=== PATIENT | female | born 1990 | race Caucasian/White ===

== ENCOUNTER → 2018-05-10 | Outpatient (CLI) | payer MEDICAID ==
[2018-05-10 20:13] LABS: HIV 1 AB Non-Reactive (Non-Reactive); HIV AB P24 Non-Reactive (Non-Reactive); HIV P24 AG Non-Reactive (Non-Reactive)
== END | disposition home or self-care (01) ==
LOC: LABWHC1 11:12
PROVIDERS: ATTEND Obstetrics & Gynecology
DX: Z11.3 Encounter for screening for infections with a predominantly sexual mode of transmission (principal)
CPT/HCPCS: 36415; 86780; 87390

== ENCOUNTER 2018-10-09 12:43 | Inpatient (IN) | payer MEDICAID ==
[2018-10-09] MEDS ORDERED: SODIUM CHLORIDE 0.9% 1,000 ML IV STA (13:07)
[2018-10-09] MEDS ORDERED: ACETAMINOPHEN TAB 500 MG TAB PO STA (13:36)
[2018-10-09 14:01] LABS: Appearance,Urine Cloudy (Clear); Basophils % (A) 0 %; Bilirubin,Urine Negative (Negative); Blood,Urine Negative (Negative); Color,Urine Red; Eosinophils # (A) 0.1 k/uL (0-0.7); Eosinophils % (A) 1 %; Glucose,Urine (UA) Negative (Negative); HCT 41.8 % (34.0-46.0); HGB 13.7 gm/dL (11.4-16.0); Ketones,Urine 1+ (Negative); Leukocyte Esterase,Urine Large (Negative); Lymphocytes # (A) 0.5 k/uL (1.0-4.8); Lymphocytes % (A) 5 %; MCHC 32.8 g/dL (31.0-37.0); MCV 88.3 fL (80.0-100.0); Mean Platelet Volume 6.2; Monocytes # (A) 0.4 k/uL (0-1.0); Monocytes % (A) 3 %; Mucus,Urine Rare /hpf; Neutrophils # (A) 10.1 k/uL (1.3-7.7); Neutrophils % (A) 91 %; Nitrite,Urine Negative (Negative); PH, Urine 7.5 (5.0-8.0); Platelet Count 209 k/uL (150-450); Protein,Urine 1+ (Negative); RBC 4.74 m/uL (3.80-5.40); RBC,Urine 4 /hpf (0-5); RDW 13.4 % (11.5-15.5); Specific Gravity,Urine 1.023 (1.001-1.035); Squamous Epithelial Cell,Urine 18 /hpf (0-4); WBC 11.2 k/uL (3.8-10.6); WBC,Urine 54 /hpf (0-5)
[2018-10-09 14:04] LABS: ALT 42 U/L (9-52); AST 28 U/L (14-36); Alkaline Phosphatase 66 U/L (38-126); Anion Gap 8 mmol/L; Blood Urea Nitrogen 13 mg/dL (7-17); Calcium 9.4 mg/dL (8.4-10.2); Carbon Dioxide 24 mmol/L (22-30); Chloride 104 mmol/L (98-107); Glucose 102 mg/dL (74-99); Potassium 4.2 mmol/L (3.5-5.1); Sodium 136 mmol/L (137-145); Total Bilirubin 0.7 mg/dL (0.2-1.3); Total Protein 6.8 g/dL (6.3-8.2)
[2018-10-09] MEDS ORDERED: metroNIDAZOLE-NS PMX 500 MG in SALINE 1 100ML.BAG IVPB STA (14:11)
--- NOTE | 2018-10-09 14:14 | ED ---
General Adult HPI - General Chief complaint: Fever Stated complaint: post surgical poss septic per Dr Barrera Time Seen by Provider: 10/09/18 13:07 Source: patient, RN notes reviewed, old records reviewed Mode of arrival: ambulatory Limitations: no limitations - History of Present Illness Initial comments: 28-year-old female presents for evaluation of fever and vaginal discharge. Patient is 13 days postop cervical cryotherapy. She was seen at outside hospital yesterday with symptoms of fever and increased vaginal discharge. Discharged home with outpatient follow-up. She did call her [employer] who recommended she presented to the emergency department for fever workup. Prior to procedure patient had 2 cultures which were negative for infection. Symptoms of increased vaginal discharge have been primarily over the past 3-4 days. She's had temperature of 101. Denies URI symptoms. Denies cough. Denies upper abdominal pain. Only complains of lower abdominal pain. - Related Data Home Medications Medication Instructions Recorded Confirmed ALPRAZolam [Xanax] 0.25 mg PO BID PRN 10/09/18 10/09/18 Norethindrone-E.estradiol-Iron 1 tab PO DAILY 10/09/18 10/09/18 [Junel Fe 1 mg-20 Mcg Tablet] Allergies Allergy/AdvReac Type Severity Reaction Status Date / Time Sulfa (Sulfonamide Allergy Rash/Hives Verified 10/09/18 13:34 Antibiotics) tree nut Allergy Unknown Verified 10/09/18 13:34 walnut Allergy Anaphylaxis Verified 10/09/18 13:34 Review of Systems ROS Statement: Those systems with pertinent positive or pertinent negative responses have been documented in the HPI. ROS Other: All systems not noted in ROS Statement are negative. Past Medical History Past Medical History: Asthma History of Any Multi-Drug Resistant Organisms: MRSA Date of last positivie culture/infection: 2008 MDRO Source:: bella and nose same time Past Surgical History: No Surgical Hx Reported Past Psychological History: Anxiety Smoking Status: Current every day smoker Past Alcohol Use History: Rare Past Drug Use History: None Reported General Exam Limitations: no limitations General appearance: alert, in no apparent distress Head exam: Present: atraumatic, normocephalic Eye exam: Present: normal appearance, PERRL ENT exam: Present: normal exam Neck exam: Present: normal inspection. Absent: tenderness, meningismus Respiratory exam: Present: normal lung sounds bilaterally. Absent: respiratory distress Cardiovascular Exam: Present: normal rhythm, tachycardia GI/Abdominal exam: Present: soft, tenderness (Suprapubic tenderness). Absent: distended External exam: Present: normal external exam Speculum exam: Present: vaginal discharge, cervical discharge By manual exam: Present: cervical motion tenderness Extremities exam: Present: normal inspection, full ROM. Absent: tenderness Neurological exam: Present: alert, oriented X3 Psychiatric exam: Present: normal affect, normal mood Skin exam: Present: warm, dry, intact. Absent: cyanosis, diaphoretic Course Vital Signs 10/09/18 12:44 Temperature 100.1 F H Pulse Rate 110 H Respiratory 18 Rate Blood Pressure 144/81 O2 Sat by Pulse 96 Oximetry Medical Decision Making - Medical Decision Making 28-year-old female with fever, pelvic pain, vaginal discharge. On exam patient has copious vaginal discharge, cervical motion tenderness. No upper abdominal pain or tenderness. Workup in the emergency department reveals leukocytosis, 11.2, stable he will, normal CMP, she does have contaminated urine with 54 white cells. Ultrasound is obtained, negative for TOA, no acute findings. Chest x-ray negative for focal pneumonia. Influenza negative. Cultures pending including blood culture, urine culture, vaginal culture, GC chlamydia. Patient started on antibiotics to cover pelvic inflammatory disease. Case is discussed with Dr. Barrera, will accept admission for failed outpatient treatment. - Lab Data Result diagrams: 10/09/18 13:35 10/09/18 13:35 Lab Results 10/09/18 10/09/18 10/09/18 Range/Units 13:35 13:35 13:35 WBC 11.2 H (3.8-10.6) k/uL RBC 4.74 (3.80-5.40) m/uL Hgb 13.7 (11.4-16.0) gm/dL Hct 41.8 (34.0-46.0) % MCV 88.3 (80.0-100.0) fL MCH 29.0 (25.0-35.0) pg MCHC 32.8 (31.0-37.0) g/dL RDW 13.4 (11.5-15.5) % Plt Count 209 (150-450) k/uL Neutrophils % 91 % Lymphocytes % 5 % Monocytes % 3 % Eosinophils % 1 % Basophils % 0 % Neutrophils # 10.1 H (1.3-7.7) k/uL Lymphocytes # 0.5 L (1.0-4.8) k/uL Monocytes # 0.4 (0-1.0) k/uL Eosinophils # 0.1 (0-0.7) k/uL Basophils # 0.0 (0-0.2) k/uL Sodium 136 L (137-145) mmol/L Potassium 4.2 (3.5-5.1) mmol/L Chloride 104 (98-107) mmol/L Carbon Dioxide 24 (22-30) mmol/L Anion Gap 8 mmol/L BUN 13 (7-17) mg/dL Creatinine 0.68 (0.52-1.04) mg/dL Est GFR (CKD-EPI)AfAm >90 (>60 ml/min/1.73 sqM) Est GFR (CKD-EPI)NonAf >90 (>60 ml/min/1.73 sqM) Glucose 102 H (74-99) mg/dL Plasma Lactic Acid Florentino 1.1 (0.7-2.0) mmol/L Calcium 9.4 (8.4-10.2) mg/dL Total Bilirubin 0.7 (0.2-1.3) mg/dL AST 28 (14-36) U/L ALT 42 (9-52) U/L Alkaline Phosphatase 66 (38-126) U/L Total Protein 6.8 (6.3-8.2) g/dL Albumin 4.0 (3.5-5.0) g/dL Urine Color Urine Appearance (Clear) Urine pH (5.0-8.0) Ur Specific [place] (1.001-1.035) Urine Protein (Negative) Urine Glucose (UA) (Negative) Urine Ketones (Negative) Urine Blood (Negative) Urine Nitrite (Negative) Urine Bilirubin (Negative) Urine Urobilinogen (<2.0) mg/dL Ur Leukocyte Esterase (Negative) Urine RBC (0-5) /hpf Urine WBC (0-5) /hpf Ur Squamous Epith Cells (0-4) /hpf Urine Mucus (None) /hpf Urine HCG, Qual (Not Detectd) Influenza Type A RNA (Not Detectd) Influenza Type B (PCR) (Not Detectd) Trichomonas Ag (Rapid) (Negative) 10/09/18 10/09/18 10/09/18 Range/Units 13:35 13:35 14:10 WBC (3.8-10.6) k/uL RBC (3.80-5.40) m/uL Hgb (11.4-16.0) gm/dL Hct (34.0-46.0) % MCV (80.0-100.0) fL MCH (25.0-35.0) pg MCHC (31.0-37.0) g/dL RDW (11.5-15.5) % Plt Count (150-450) k/uL Neutrophils % % Lymphocytes % % Monocytes % % Eosinophils % % Basophils % % Neutrophils # (1.3-7.7) k/uL Lymphocytes # (1.0-4.8) k/uL Monocytes # (0-1.0) k/uL Eosinophils # (0-0.7) k/uL Basophils # (0-0.2) k/uL Sodium (137-145) mmol/L Potassium (3.5-5.1) mmol/L Chloride (98-107) mmol/L Carbon Dioxide (22-30) mmol/L Anion Gap mmol/L BUN (7-17) mg/dL Creatinine (0.52-1.04) mg/dL Est GFR (CKD-EPI)AfAm (>60 ml/min/1.73 sqM) Est GFR (CKD-EPI)NonAf (>60 ml/min/1.73 sqM) Glucose (74-99) mg/dL Plasma Lactic Acid Florentino (0.7-2.0) mmol/L Calcium (8.4-10.2) mg/dL Total Bilirubin (0.2-1.3) mg/dL AST (14-36) U/L ALT (9-52) U/L Alkaline Phosphatase (38-126) U/L Total Protein (6.3-8.2) g/dL Albumin (3.5-5.0) g/dL Urine Color Red Urine Appearance Cloudy H (Clear) Urine pH 7.5 (5.0-8.0) Ur Specific [place] 1.023 (1.001-1.035) Urine Protein 1+ H (Negative) Urine Glucose (UA) Negative (Negative) Urine Ketones 1+ H (Negative) Urine Blood Negative (Negative) Urine Nitrite Negative (Negative) Urine Bilirubin Negative (Negative) Urine Urobilinogen 12.0 (<2.0) mg/dL Ur Leukocyte Esterase Large H (Negative) Urine RBC 4 (0-5) /hpf Urine WBC 54 H (0-5) /hpf Ur Squamous Epith Cells 18 H (0-4) /hpf Urine Mucus Rare H (None) /hpf Urine HCG, Qual Not Detected (Not Detectd) Influenza Type A RNA Not Detected (Not Detectd) Influenza Type B (PCR) Not Detected (Not Detectd) Trichomonas Ag (Rapid) Negative (Negative) Disposition Clinical Impression: Pelvic inflammatory disease Disposition: ADMITTED IP TO THIS HOSP Condition: Stable Is patient prescribed a controlled substance at d/c from ED?: No Referrals: Clifton Tilley DO [Primary Care Provider] - 1-2 days Decision to Admit Reason: Admit from EC Decision Date: 10/09/18 Decision Time: 17:05
[2018-10-09] MEDS ORDERED: KETOROLAC 30 MG/ML 1 ML VIAL IVP STA (14:35)
--- NOTE | 2018-10-09 15:03 | US ---
EXAMINATION TYPE: US pelvic complete DATE OF EXAM: 10/09/2018 COMPARISON: NONE CLINICAL HISTORY: pain. cervical procedure 3 days prior and now pelvic pain, fever and elevated WBC TECHNIQUE: TA. Patient did not want TV approach if not necessary due to pain Date of LMP: 09/07/2018 EXAM MEASUREMENTS: Uterus: 6.3 x 3.6 x 3.2 cm Endometrial Stripe: 0.3 cm Right Ovary: 2.0 x 1.9 x 1.8 cm Left Ovary: 2.7 x 2.6 x 2.3 cm 1. Uterus: Anteverted wnl 2. Endometrium: wnl 3. Right Ovary: 1.7cm cystic cluster seen 4. Left Ovary: wnl Spectral, color and waveform doppler imaging shows good arterial and venous flow within the ovaries ; 5. Bilateral Adnexa: no free fluid 6. Posterior cul-de-sac: no free fluid There is heterogeneous anteverted uterus. No free fluid is seen in pelvic cul-de-sac. Both ovaries are present. Within right ovary there is a group of small adjacent cysts or stenosis wit hin septa. IMPRESSION: No suspicious fluid collection or abscess seen.
[2018-10-09] MEDS ORDERED: SODIUM CHLORIDE 0.9% 1,000 ML IV ONE (15:47)
--- NOTE | 2018-10-09 15:48 | XR ---
EXAMINATION TYPE: XR chest 2V DATE OF EXAM: 10/09/2018 COMPARISON: NONE TECHNIQUE: PA and lateral views submitted. HISTORY: Fever FINDINGS: The lungs are clear and there is no pneumothorax, pleural effusion, or focal pneumonia. IMPRESSION: 1. No acute process.
[2018-10-09] MEDS ORDERED: DOXYCYCLINE 100 MG CAP PO STA (16:47)
[2018-10-09] MEDS ORDERED: MORPHINE SULFATE 4 MG/ML SYRINGE IVP STA (16:52)
[2018-10-09] MEDS ORDERED: NALOXONE 0.4 MG/ML 1 ML VIAL IV PRN (17:01)
[2018-10-09] MEDS ORDERED: ACETAMINOPHEN TAB 325 MG TAB PO PRN (17:01)
--- NOTE | 2018-10-09 18:03 | P.HPOB ---
History of Present Illness H&P Date: 10/09/18 Chief Complaint: Fever, abdominal pain This is a 28 year female 2 para 1 who presents to the emergency room complaining of lower abdominal pain and fevers. She was seen at [facility] yesterday complaining of body aches, fever, and lower abdominal pain she also complained of some vaginal discharge that she has noticed since she had a cryocautery in the office on 09/26/2018. She was given some antibiotics and told she had an infection from the cryo-and sent home. She called the office this morning and was still complaining of fevers and did not feel good. She was advised to return to the emergency room at [facility] to be further evaluated for her elevated white count, fevers, and abdominal pain. In the emergency room she had a thorough workup including pelvic ultrasound and pelvic exam. Pelvic ultrasound was negative but she did have cervical motion tenderness and suprapubic tenderness over her uterine fundus on exam per ER doctor. She also had copious vaginal discharge. She did state she had a new partner recently and did have cultures in my office on September 26 that were all negative for STDs. She denies any intercourse since her cryocautery on 2018. She is being admitted for IV antibiotics for failed outpatient treatment for PID. She is on control pills and just took her last active pill today. Obstetrical history: . History of 1 vaginal delivery and 1 miscarriage. Gynecologic history: She does have a history of herpes and has 1-2 outbreaks per year. She has not had an outbreaks in 8-9 months. She also has a history of gonorrhea and chlamydia and Trichomonas that were treated in 2014. Social history: She is single. 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 Review of Systems Constitutional: Reports chills, Reports fatigue, Reports fever Gastrointestinal: Reports abdominal pain Genitourinary: Reports pelvic pain, Reports vaginal discharge, Denies Musculoskeletal: Reports myalgias Psychiatric: Reports anxiety Past Medical History Past Medical History: Asthma History of Any Multi-Drug Resistant Organisms: MRSA Date of last positivie culture/infection: 2008 MDRO Source:: bella and nose same time Past Surgical History: No Surgical Hx Reported Past Psychological History: Anxiety Smoking Status: Current every day smoker Past Alcohol Use History: Rare Past Drug Use History: None Reported - Past Family History Father Family Medical History: Hypertension Medications and Allergies Home Medications Medication Instructions Recorded Confirmed Type Albuterol Inhaler [Ventolin Hfa 1 - 2 puff INHALATION RT-Q6H PRN 10/09/18 History Inhaler] Montelukast Sodium [Singulair] 10 mg PO HS 10/09/18 10/09/18 History Norethindrone-E.estradiol-Iron 1 tab PO DAILY 10/09/18 10/09/18 History [Junel Fe 1 mg-20 Mcg Tablet] RX: ALPRAZolam [Xanax] 0.25 mg PO BID PRN 10/09/18 10/09/18 History Allergies Allergy/AdvReac Type Severity Reaction Status Date / Time Sulfa (Sulfonamide Allergy Rash/Hives Verified 10/09/18 13:34 Antibiotics) tree nut Allergy Unknown Verified 10/09/18 13:34 walnut Allergy Anaphylaxis Verified 10/09/18 13:34 Exam Osteopathic Statement: *. No significant issues noted on an osteopathic structural exam other than those noted in the History and Physical/Consult. Vital Signs Temp Pulse Resp BP Pulse Ox 10/09/18 16:49 98.3 F 91 18 117/76 99 10/09/18 12:44 100.1 F H 110 H 18 144/81 96 Intake and Output 10/09/18 10/09/18 10/09/18 06:59 14:59 22:59 Other: Weight 70.307 kg Gen.: Well developed well-nourished female in mild distress Abdomen: Soft, tender suprapubically with no guarding or rebound. Pelvic exam: Deferred at this time due to recent exam in the ER. Extremities: Negative Homans - OBG Physical Exam Abdomen: Tenderness suprapubically, no guarding or rebound Abdomen: bowel sounds normal, no diffuse tenderness Uterus: Pelvic exam is deferred at this time since she already had a pelvic exam by ER physician. Results Result Diagrams: 10/09/18 13:35 10/09/18 13:35 Abnormal Lab Results - Last 24 Hours (Table) 10/09/18 10/09/18 10/09/18 Range/Units 13:35 13:35 13:35 WBC 11.2 H (3.8-10.6) k/uL Neutrophils # 10.1 H (1.3-7.7) k/uL Lymphocytes # 0.5 L (1.0-4.8) k/uL Sodium 136 L (137-145) mmol/L Glucose 102 H (74-99) mg/dL Urine Appearance Cloudy H (Clear) Urine Protein 1+ H (Negative) Urine Ketones 1+ H (Negative) Ur Leukocyte Esterase Large H (Negative) Urine WBC 54 H (0-5) /hpf Ur Squamous Epith Cells 18 H (0-4) /hpf Urine Mucus Rare H (None) /hpf Assessment and Plan (1) Pelvic inflammatory disease Current Visit: Yes Status: Acute Code(s): N73.9 - FEMALE PELVIC INFLAMMATORY DISEASE, UNSPECIFIED SNOMED Code(s): 502471647 Plan: Agree with admission and IV antibiotics. Once she is 24 hours afebrile on antibiotics, we will switch to oral medications and discharge home. We'll give pain medication as needed.
[2018-10-09] MEDS: SODIUM CHLORIDE 0.9% 1,000 ML IV SCH (20:00)
[2018-10-09 20:24] VITALS: BMI 26.4
[2018-10-09] MEDS: MORPHINE SULFATE 4 MG/ML SYRINGE IV PRN (21:00)
[2018-10-09] MEDS ORDERED: DOXYCYCLINE 100 MG in SODIUM CHLORIDE 0.9% 100 ML IVPB SCH (21:00)
[2018-10-10] MEDS: metroNIDAZOLE-NS PMX 500 MG in SALINE 1 100ML.BAG IVPB SCH ×3 (00:19→15:38)
[2018-10-10] MEDS: MORPHINE SULFATE 4 MG/ML SYRINGE IV PRN ×2 (01:00→06:16)
[2018-10-10] MEDS ORDERED: ALPRAZolam 0.25 MG TAB PO PRN (01:14)
[2018-10-10] MEDS: ALBUTEROL NEBULIZED 2.5 MG/3 ML INHALATION PRN ×2 (01:43→07:25)
[2018-10-10] MEDS ORDERED: HYDROcodone/APAP 7.5-325MG 1 EACH TAB PO PRN (05:30)
--- NOTE | 2018-10-10 05:30 | P.PN ---
Subjective Progress Note Date: 10/10/18 Principal diagnosis: PID Patient states her abdominal pain is better today however she is still using morphine about every 4 hours for pain. She states her vaginal discharge has significantly decreased from yesterday. Her appetite is normal. Objective - Vital Signs Vital signs: Vital Signs Temp 99.2 F 10/10/18 00:17 Pulse 76 10/10/18 01:56 Resp 16 10/10/18 01:56 BP 123/85 10/10/18 00:58 Pulse Ox 100 10/10/18 00:58 Intake & Output 10/09/18 10/09/18 10/10/18 06:59 18:59 06:59 Output Total 1 Balance -1 Weight 70.307 kg Output: Stool 1 Other: # Voids 1 # Bowel Movements 1 - Constitutional General appearance: Present: no acute distress - Gastrointestinal General gastrointestinal: Present: soft Localized gastrointestinal: tender: suprabubic - Labs CBC & Chem 7: 10/09/18 13:35 10/09/18 13:35 Labs: Abnormal Lab Results - Last 24 Hours (Table) 10/09/18 10/09/18 10/09/18 Range/Units 13:35 13:35 13:35 WBC 11.2 H (3.8-10.6) k/uL Neutrophils # 10.1 H (1.3-7.7) k/uL Lymphocytes # 0.5 L (1.0-4.8) k/uL Sodium 136 L (137-145) mmol/L Glucose 102 H (74-99) mg/dL Urine Appearance Cloudy H (Clear) Urine Protein 1+ H (Negative) Urine Ketones 1+ H (Negative) Ur Leukocyte Esterase Large H (Negative) Urine WBC 54 H (0-5) /hpf Ur Squamous Epith Cells 18 H (0-4) /hpf Urine Mucus Rare H (None) /hpf Microbiology - Last 24 Hours (Table) 10/09/18 14:10 Genital Culture - Preliminary Cervix 10/09/18 13:35 Urine Culture - Preliminary Urine,Voided Assessment and Plan (1) Pelvic inflammatory disease Current Visit: Yes Status: Acute Code(s): N73.9 - FEMALE PELVIC INFLAMMATORY DISEASE, UNSPECIFIED SNOMED Code(s): 997643946 Plan: Will continue with IV antibiotics through today. Will check CBC this morning. I have encouraged her to try to take oral pain medications if possible and only use the IV pain medication for severe pain. She is agreeable to this plan.
[2018-10-10] MEDS: DOXYCYCLINE 100 MG in SODIUM CHLORIDE 0.9% 100 ML IVPB SCH ×2 (06:17→18:10)
[2018-10-10] MEDS: IBUPROFEN 600 MG TAB PO PRN ×3 (06:17→18:58)
[2018-10-10 06:20] LABS: Basophils % (A) 0 %; Eosinophils # (A) 0.1 k/uL (0-0.7); Eosinophils % (A) 1 %; HCT 34.5 % (34.0-46.0); HGB 11.3 gm/dL (11.4-16.0); Lymphocytes # (A) 1.1 k/uL (1.0-4.8); Lymphocytes % (A) 12 %; MCH 29.5 pg (25.0-35.0); MCHC 32.9 g/dL (31.0-37.0); MCV 89.9 fL (80.0-100.0); Monocytes # (A) 0.5 k/uL (0-1.0); Monocytes % (A) 5 %; Neutrophils # (A) 7.2 k/uL (1.3-7.7); Neutrophils % (A) 80 %; Platelet Count 162 k/uL (150-450); RBC 3.84 m/uL (3.80-5.40); RDW 13.4 % (11.5-15.5); WBC 9.1 k/uL (3.8-10.6)
[2018-10-10] MEDS ORDERED: DOXYCYCLINE 100 MG in SODIUM CHLORIDE 0.9% 100 ML IVPB SCH (09:00)
[2018-10-10] MEDS: HYDROcodone/APAP 5-325MG 1 EACH TAB PO PRN ×3 (09:18→21:39)
[2018-10-10 14:30] LABS: N. gonorrhoeae,PCR Negative (Neg,Equiv); Neisseria Source Vagina
[2018-10-10 14:35] LABS: C. trachomatis,PCR Negative (Neg,Equiv); Chlamydia trachomatis Source Vagina
[2018-10-10] MEDS ORDERED: MONTELUKAST 10 MG TAB PO SCH (21:00)
[2018-10-11] MEDS: metroNIDAZOLE-NS PMX 500 MG in SALINE 1 100ML.BAG IVPB SCH ×2 (00:54→08:09)
[2018-10-11] MEDS: IBUPROFEN 600 MG TAB PO PRN ×2 (00:55→06:58)
[2018-10-11 03:33] VITALS: TEMP 97.9
[2018-10-11] MEDS: HYDROcodone/APAP 5-325MG 1 EACH TAB PO PRN (03:58)
[2018-10-11] MEDS: DOXYCYCLINE 100 MG in SODIUM CHLORIDE 0.9% 100 ML IVPB SCH (06:12)
[2018-10-11] MEDS: SODIUM CHLORIDE 0.9% 1,000 ML IV SCH ×2 (06:38→06:39)
[2018-10-11 08:18] VITALS: BP 107/72; PULSE 64; RESP 16
--- NOTE | 2018-10-11 08:45 | P.DS ---
Providers Date of admission: 10/09/18 17:02 Expected date of discharge: 10/11/18 Attending physician: Ana Luisa Barrera Primary care physician: Clifton Tilley, DO - Discharge Diagnosis(es) (1) Pelvic inflammatory disease Current Visit: Yes Status: Acute Hospital Course: This is a 28-year-old female who presented with fevers and abdominal pain and was diagnosed with PID in the emergency room. All of her cultures so far are negative. She has been afebrile for over 24 hours now. Her pain and discharge have significantly decreased. She is still using [place] and ibuprofen alternating for pain, but overall her pain level has decreased. Vital signs are stable. Abdomen is soft with very minimal suprapubic tenderness and no guarding or rebound. Extremities show negative Homans. Impression is PID- failed outpatient treatment. Plan is to discharge home today on oral doxycycline and they will prescribe ibuprofen and a 3 day supply of [place]. She has starting the start taking opioid form. She denies taking any other narcotics at home. I have advised her to follow up in the office in 1-2 weeks for a postoperative check. I've advised her to call if she has any further questions or concerns prior to her appointment time. Patient Condition at Discharge: Stable Plan - Discharge Summary Discharge Rx Participant: Yes New Discharge Prescriptions: New Doxycycline [Vibramycin] 100 mg PO BID 10 Days #20 cap HYDROcodone/APAP 5-325MG [[place] 5-325] 1 each PO Q4HR PRN #18 tab PRN Reason: Moderate pain Ibuprofen [Motrin] 600 mg PO Q6HR PRN #60 tab PRN Reason: Moderate Pain Continue Norethindrone-E.estradiol-Iron [Junel Fe 1 mg-20 Mcg Tablet] 1 tab PO DAILY # 28 tablet No Action ALPRAZolam [Xanax] 0.25 mg PO BID PRN PRN Reason: Anxiety Montelukast Sodium [Singulair] 10 mg PO HS Albuterol Inhaler [Ventolin Hfa Inhaler] 1 - 2 puff INHALATION RT-Q6H PRN PRN Reason: Wheezing Discharge Medication List ALPRAZolam [Xanax] 0.25 mg PO BID PRN 10/09/18 [History] Albuterol Inhaler [Ventolin Hfa Inhaler] 1 - 2 puff INHALATION RT-Q6H PRN [History] Montelukast Sodium [Singulair] 10 mg PO HS 10/09/18 [History] Doxycycline [Vibramycin] 100 mg PO BID 10 Days #20 cap 10/11/18 [Rx] HYDROcodone/APAP 5-325MG [[place] 5-325] 1 each PO Q4HR PRN #18 tab 10/11/18 [Rx] Ibuprofen [Motrin] 600 mg PO Q6HR PRN #60 tab 10/11/18 [Rx] Norethindrone-E.estradiol-Iron [Junel Fe 1 mg-20 Mcg Tablet] 1 tab PO DAILY #28 tablet 10/11/18 [Rx] Follow up Appointment(s)/Referral(s): Clifton Tilley DO [Primary Care Provider] - 1-2 days Ana Luisa Barrera DO [Doctor of Osteopathic Medicine] - 10 Days Activity/Diet/Wound Care/Special Instructions: Pt would like dc rx at discharge. Activity as tolerated. Diet as tolerated. If any intercourse, use condoms while on antibiotics due to decreased effectiveness of control pills on antibiotics. Discharge Disposition: HOME SELF-CARE
== END 2018-10-11 10:00 | disposition home or self-care (01) | DRG 759 ==
LOC: EC 12:43 → 6PED 17:02
PROVIDERS: ADMIT Obstetrics & Gynecology; ATTEND Obstetrics & Gynecology
DX: N73.9 Female pelvic inflammatory disease, unspecified (principal); F41.9 Anxiety disorder, unspecified; J45.909 Unspecified asthma, uncomplicated; D72.829 Elevated white blood cell count, unspecified; F17.200 Nicotine dependence, unspecified, uncomplicated; Z79.3 Long term (current) use of hormonal contraceptives; Z86.19 Personal history of other infectious and parasitic diseases; Z86.14 Personal history of Methicillin resistant Staphylococcus aureus infection; Z82.49 Family history of ischemic heart disease and other diseases of the circulatory system; Z79.899 Other long term (current) drug therapy; Z88.2 Allergy status to sulfonamides; Z91.018 Allergy to other foods
CPT/HCPCS: 36415; 71046; 76856; 80053; 81001; 81025; 83605; 85025; 87040; 87070; 87086; 87205; 87491; 87502; 87591; 87808; 93975; 94640; 96361; 96365; 96367; 96375; 99285